=== PATIENT | female | born 1980 | race Caucasian/White ===

== ENCOUNTER 2018-01-04 02:29 | Emergency (ER) | payer BC ==
[~2018-01-04] VITALS: Ht 162.6 cm; Wt 62.0 kg
[2018-01-04] MEDS ORDERED: LIDOcaine Viscous 15ml cup PO ONE (02:45)
[2018-01-04] MEDS ORDERED: pantoprazole 40mg Tablet.DR PO ONE (02:45)
[2018-01-04] MEDS ORDERED: famotidine 20mg tablet PO ONE (02:45)
[2018-01-04] MEDS ORDERED: mag hydrox/Alum hydrox/simeth 30ml oral suspension PO ONE ×2 (02:45→03:45)
[2018-01-04 04:05] VITALS: BP 148/85
[2018-01-04] MEDS ORDERED: ONDA8TAB9 PO (22:44)
== END 2018-01-04 04:07 | disposition home or self-care (01) ==
LOC: ER 02:30
DX: K21.9 Gastro-esophageal reflux disease without esophagitis (principal)
CPT/HCPCS: 99284

== ENCOUNTER 2018-01-04 19:34 | Emergency (ER) | payer BC ==
[~2018-01-04] VITALS: Ht 162.6 cm; Wt 63.0 kg
[2018-01-04] MEDS ORDERED: LORazepam 2 mg/ml vial IV ONE (20:35)
[2018-01-04] MEDS ORDERED: normal saline 1000ML IV soln IVB ONE (20:35)
[2018-01-04 21:16] LABS: BASOPHILS % (AUTO) 0.4 % (0-1); EOSINOPHILS # (AUTO) 0.2 X10'3 (0-0.9); EOSINOPHILS % (AUTO) 1.7 % (0-6); HEMATOCRIT 44.8 % (35.0-45.0); HEMOGLOBIN 15.6 g/dl (12.0-16.0); LYMPHOCYTES # (AUTO) 2.9 X10'3 (1.1-4.8); LYMPHOCYTES % (AUTO) 22.8 % (21-51); MEAN CORPUSCULAR HEMOGLOBIN 32.3 PG (27.0-31.0); MEAN CORPUSCULAR HGB CONC 34.7 % (33.0-36.5); MEAN PLATELET VOLUME 7.7 FL (7.4-10.4); MONOCYTES # (AUTO) 0.9 X10'3 (0-0.9); NEUTROPHILS # (AUTO) 8.6 X10'3 (1.8-7.7); NEUTROPHILS % (AUTO) 68.1 % (42-75); PLATELET COUNT 330 X10'3 (140-440); RED BLOOD COUNT 4.82 X10'6 (4.20-5.60); RED CELL DISTRIBUTION WIDTH 12.6 % (11.5-14.5); WHITE BLOOD COUNT 12.6 X10'3 (4.5-11.0)
[2018-01-04 21:29] LABS: ALANINE AMINOTRANSFERASE 19 U/L (12-78); ALBUMIN 4.4 G/DL (3.4-5.0); ALBUMIN/GLOBULIN RATIO 1.3 (1.1-1.5); ALKALINE PHOSPHATASE 72 IU/L (46-116); ANION GAP 10 (8-16); ASPARTATE AMINO TRANSFERASE 15 U/L (10-37); BILIRUBIN,TOTAL 0.5 MG/DL (0.1-1.0); BLOOD UREA NITROGEN 6 MG/DL (7-18); BUN/CREATININE RATIO 8.7 (6.6-38.0); CALCIUM 9.2 MG/DL (8.5-10.1); CHLORIDE 99 MMOL/L (99-107); CREATINE KINASE 67 U/L (26-192); CREATININE 0.69 MG/DL (0.40-0.90); GLUCOSE 102 MG/DL (70-104); MAGNESIUM 2.5 MG/DL (1.5-2.4); POTASSIUM 3.9 MMOL/L (3.5-5.1); SODIUM 138 MMOL/L (135-145); TOTAL CARBON DIOXIDE 28.9 MMOL/L (24-32); TOTAL PROTEIN 7.8 G/DL (6.4-8.2); eGFR > 90 ML/MIN
[2018-01-04 21:32] LABS: URINE AMPHETAMINE SCREEN NEGATIVE (Neg); URINE BARBITUATE SCREEN NEGATIVE (Neg); URINE BENZODIAZEPINES SCREEN NEGATIVE (Neg); URINE CANNABINOID SCREEN NEGATIVE (Neg); URINE COCAINE SCREEN NEGATIVE (Neg); URINE METHADONE SCREEN NEGATIVE (Neg); URINE OPIATE SCREEN NEGATIVE (Neg); URINE PHENCYCLIDINE SCREEN NEGATIVE (Neg)
[2018-01-04] MEDS ORDERED: ONDA8TAB9 PO (22:44)
[2018-01-04 22:55] VITALS: BP 133/90
== END 2018-01-04 23:03 | disposition home or self-care (01) ==
LOC: ER 19:34
DX: R53.1 Weakness (principal); R41.9 Unspecified symptoms and signs involving cognitive functions and awareness; J45.909 Unspecified asthma, uncomplicated; K21.9 Gastro-esophageal reflux disease without esophagitis; F32.9 Major depressive disorder, single episode, unspecified
CPT/HCPCS: 36415; 70450; 71045; 80053; 80305; 82140; 82550; 83735; 84100; 85025; 85651; 93005; 96361; 96374; 99285; J2060; J7030

== ENCOUNTER 2018-01-06 22:10 | Emergency (ER) | payer BC ==
[~2018-01-06] VITALS: Ht 162.6 cm; Wt 61.8 kg
[~2018-01-06 22:10] MED LIST: ONDA8TAB9 PO
[2018-01-06] MEDS ORDERED: CEPH-572 PO (23:04)
[2018-01-06 23:21] LABS: URINE HCG NEGATIVE (NEG)
[2018-01-06 23:33] LABS: CLARITY,URINE CLEAR (Clear); COLOR,URINE STRAW (Yellow); GLUCOSE, URINE NEGATIVE (Neg); KETONES,URINE NEGATIVE (Neg); LEUKOCYTE ESTERASE ,URINE NEGATIVE (Neg); NITRITES, URINE NEGATIVE (Neg); OCCULT BLOOD,URINE SMALL (Neg); PROTEIN,URINE NEGATIVE (Neg); UROBILINOGEN,URINE 0.2 E.U/dL (0.2-1.0)
[2018-01-06 23:38] LABS: SQUAMOUS EPITHELIAL CELL,UR FEW /LPF (FEW); UA COLLECTION TYPE CLN CATCH MIDSTREAM
[2018-01-06 23:39] LABS: BACTERIA,URINE FEW /HPF (Neg); RBC,URINE 0-2 /HPF (0-2); WBC,URINE 0-4 /HPF (0-4)
[2018-01-06] MEDS ORDERED: diphenhydrAMINE 25mg capsule PO ONE (23:50)
[2018-01-06] MEDS ORDERED: ziprasidone 20mg capsule PO ONE (23:50)
[2018-01-07 00:04] VITALS: BP 160/98
[2018-01-08] MEDS ORDERED: OMEP40CA37 PO (07:11)
[2018-01-08] MEDS ORDERED: VALA10002 PO (07:11)
== END 2018-01-07 00:05 | disposition home or self-care (01) ==
LOC: ER 22:10
DX: F41.9 Anxiety disorder, unspecified (principal); K21.9 Gastro-esophageal reflux disease without esophagitis; F32.9 Major depressive disorder, single episode, unspecified
CPT/HCPCS: 36415; 81001; 81025; 84443; 93005; 99285; Q0163

== ENCOUNTER 2018-01-07 18:04 | Emergency (ER) | payer BC ==
[~2018-01-07] VITALS: Ht 165.1 cm; Wt 61.0 kg
[~2018-01-07 18:04] MED LIST changes: +CEPH-572 PO
[2018-01-07 20:18] LABS: BASOPHILS % (AUTO) 0.3 % (0-1); EOSINOPHILS # (AUTO) 0.1 X10'3 (0-0.9); EOSINOPHILS % (AUTO) 1.3 % (0-6); HEMATOCRIT 43.7 % (35.0-45.0); HEMOGLOBIN 15.3 g/dl (12.0-16.0); LYMPHOCYTES # (AUTO) 2.9 X10'3 (1.1-4.8); MEAN CORPUSCULAR HEMOGLOBIN 32.4 PG (27.0-31.0); MEAN CORPUSCULAR HGB CONC 34.9 % (33.0-36.5); MEAN CORPUSCULAR VOLUME 92.8 FL (78-98); MEAN PLATELET VOLUME 7.9 FL (7.4-10.4); MONOCYTES # (AUTO) 0.7 X10'3 (0-0.9); MONOCYTES % (AUTO) 7.6 % (2-12); NEUTROPHILS # (AUTO) 5.8 X10'3 (1.8-7.7); NEUTROPHILS % (AUTO) 60.8 % (42-75); PLATELET COUNT 299 X10'3 (140-440); RED BLOOD COUNT 4.71 X10'6 (4.20-5.60); RED CELL DISTRIBUTION WIDTH 12.6 % (11.5-14.5); WHITE BLOOD COUNT 9.6 X10'3 (4.5-11.0)
[2018-01-07 20:18] LABS: URINE HCG NEGATIVE (NEG)
[2018-01-07 20:40] LABS: URINE AMPHETAMINE SCREEN NEGATIVE (Neg); URINE BARBITUATE SCREEN NEGATIVE (Neg); URINE BENZODIAZEPINES SCREEN NEGATIVE (Neg); URINE CANNABINOID SCREEN NEGATIVE (Neg); URINE COCAINE SCREEN NEGATIVE (Neg); URINE METHADONE SCREEN NEGATIVE (Neg); URINE OPIATE SCREEN NEGATIVE (Neg); URINE PHENCYCLIDINE SCREEN NEGATIVE (Neg)
[2018-01-07 20:44] LABS: ALANINE AMINOTRANSFERASE 20 U/L (12-78); ALBUMIN 4.5 G/DL (3.4-5.0); ALBUMIN/GLOBULIN RATIO 1.5 (1.1-1.5); ALKALINE PHOSPHATASE 69 IU/L (46-116); ANION GAP 10 (8-16); ASPARTATE AMINO TRANSFERASE 17 U/L (10-37); BILIRUBIN,TOTAL 0.4 MG/DL (0.1-1.0); BLOOD UREA NITROGEN 6 MG/DL (7-18); BUN/CREATININE RATIO 10.2 (6.6-38.0); CALCIUM 9.2 MG/DL (8.5-10.1); CHLORIDE 102 MMOL/L (99-107); CREATININE 0.59 MG/DL (0.40-0.90); ETHANOL < 0.010 GM/DL (0.0-0.010); GLUCOSE 101 MG/DL (70-104); POTASSIUM 3.7 MMOL/L (3.5-5.1); SODIUM 139 MMOL/L (135-145); TOTAL CARBON DIOXIDE 27.3 MMOL/L (24-32); TOTAL PROTEIN 7.6 G/DL (6.4-8.2); eGFR > 90 ML/MIN
[2018-01-08] MEDS ORDERED: LIDOcaine Viscous 15ml cup MM ONE (00:50)
[2018-01-08] MEDS ORDERED: mag hydrox/Alum hydrox/simeth 30ml oral suspension PO ONE (00:50)
[2018-01-08 03:47] VITALS: BP 112/75
[2018-01-08] MEDS ORDERED: VALA10002 PO (07:11)
[2018-01-08] MEDS ORDERED: OMEP40CA37 PO (07:11)
== END 2018-01-08 03:48 | disposition home or self-care (01) ==
LOC: ER 18:05
DX: F41.9 Anxiety disorder, unspecified (principal); F32.9 Major depressive disorder, single episode, unspecified; K21.9 Gastro-esophageal reflux disease without esophagitis
CPT/HCPCS: 36415; 80053; 80305; 80320; 81025; 84443; 85025; 99284

== ENCOUNTER 2018-01-08 03:30 | Inpatient (IN) | payer BC ==
[~2018-01-08] VITALS: Ht 162.6 cm; Wt 60.5 kg
[2018-01-08 04:00] VITALS: BP 139/89
[2018-01-08] MEDS ORDERED: LORazepam 1 MG tablet PO PRN (05:05)
[2018-01-08] MEDS ORDERED: VALA10002 PO (07:11)
[2018-01-08] MEDS ORDERED: OMEP40CA37 PO (07:11)
[2018-01-08 10:06] VITALS: BP 114/85
[2018-01-08] MEDS ORDERED: venlafaxine XR 37.5mg cap (Q24H) PO ONE (12:00)
[2018-01-08] MEDS ORDERED: mag hydrox/Alum hydrox/simeth 30ml oral suspension PO SCH (15:25)
[2018-01-08 19:57] VITALS: BP 138/85
[2018-01-08] MEDS: traZODone 50mg tablet PO SCH (20:52)
[2018-01-08] MEDS: LORazepam 1 MG tablet PO PRN (20:52)
[2018-01-08] MEDS: mag hydrox/Alum hydrox/simeth 30ml oral suspension PO PRN (22:29)
[2018-01-09] MEDS: LORazepam 1 MG tablet PO PRN (01:35)
[2018-01-09 08:00] VITALS: BP 127/93
[2018-01-09] MEDS ORDERED: venlafaxine XR 75mg capsule (Q24H) PO SCH (08:00)
[2018-01-09] MEDS: valacyclovir 500mg tablet PO SCH (08:18)
[2018-01-09] MEDS ORDERED: busPIRone 5mg tablet PO ONE (09:50)
[2018-01-09] MEDS ORDERED: LORazepam 1 MG tablet PO PRN (09:55)
[2018-01-09] MEDS ORDERED: pneumococcal 23-VAL P-sac vacc 25 mcg/0.5ml vial IMVAC ONE (10:00)
[2018-01-09] MEDS: busPIRone 5mg tablet PO SCH ×2 (12:47→21:07)
[2018-01-09 19:59] VITALS: BP 126/89
[2018-01-09] MEDS: traZODone 50mg tablet PO SCH (21:07)
[2018-01-10 08:00] VITALS: BP 101/77
[2018-01-10] MEDS: busPIRone 5mg tablet PO SCH ×3 (08:10→20:21)
[2018-01-10] MEDS: valacyclovir 500mg tablet PO SCH (08:10)
[2018-01-10 19:19] VITALS: BP 145/87
[2018-01-10] MEDS: traZODone 50mg tablet PO SCH (20:21)
[2018-01-10] MEDS ORDERED: LORazepam 0.5 MG tablet PO PRN (23:25)
[2018-01-10] MEDS ORDERED: LORazepam 1 MG tablet PO ONE (23:25)
[2018-01-11] MEDS: mag hydrox/Alum hydrox/simeth 30ml oral suspension PO PRN (04:26)
[2018-01-11 07:58] VITALS: BP 103/80
[2018-01-11] MEDS: valacyclovir 500mg tablet PO SCH (08:00)
[2018-01-11] MEDS: busPIRone 5mg tablet PO SCH ×3 (08:00→21:01)
[2018-01-11] MEDS ORDERED: hydrOXYzine 10 MG tablet PO PRN (11:00)
[2018-01-11 18:55] VITALS: BP 147/100
[2018-01-11 20:14] VITALS: BP 147/100
[2018-01-11 20:30] VITALS: BP 140/84
[2018-01-11] MEDS: traZODone 50mg tablet PO SCH (21:01)
[2018-01-12] MEDS: mag hydrox/Alum hydrox/simeth 30ml oral suspension PO PRN (00:05)
[2018-01-12 08:06] VITALS: BP 126/85
[2018-01-12] MEDS: valacyclovir 500mg tablet PO SCH (08:19)
[2018-01-12] MEDS: busPIRone 5mg tablet PO SCH (08:19)
[2018-01-12] MEDS ORDERED: HYDR-3717 PO (09:46)
[2018-01-12] MEDS ORDERED: CEPH-572 PO (09:46)
[2018-01-12] MEDS ORDERED: BUSP10TA3 PO (09:46)
[2018-01-12] MEDS ORDERED: TRAZ-143 PO (09:46)
== END 2018-01-12 11:35 | disposition home or self-care (01) | DRG 880 ==
LOC: ADULT MH 03:30
PROVIDERS: ADMIT Psychiatry & Neurology Psychiatry; ATTEND Psychiatry & Neurology Psychiatry
DX: F41.1 Generalized anxiety disorder (principal); F22 Delusional disorders; F32.9 Major depressive disorder, single episode, unspecified; G47.09 Other insomnia; R00.0 Tachycardia, unspecified; K21.9 Gastro-esophageal reflux disease without esophagitis; T38.0X5A Adverse effect of glucocorticoids and synthetic analogues, initial encounter; Y92.89 Other specified places as the place of occurrence of the external cause; Z79.899 Other long term (current) drug therapy; Z81.8 Family history of other mental and behavioral disorders
CPT/HCPCS: 87070; 93005